=== PATIENT | female | born 1995 | race Caucasian/White ===

== ENCOUNTER 2019-08-10 07:32 | Inpatient (IN) | payer MEDICAID ==
[~2019-08-10] VITALS: Ht 162.6 cm; Wt 108.2 kg
[2019-08-10] VITALS (46 sets, daily range): BP systolic 83–124; BP diastolic 46–76; PULSE 70–106; TEMP 97.7–99.1
[~2019-08-10 07:32] MED LIST: PRENATAL MVI
[2019-08-10 07:44] LABS: BASO % 0.3 % (0.0-2.0); EOS # 0.2 (0.0-0.7); EOS % 1.7 % (0-4.0); GRAN # 9.3 (1.4-6.5); GRAN % 75.4 % (42.2-75.2); LYMPH # 1.9 (1.2-3.4); LYMPH % 15.5 % (20.0-51.0); MEAN CELL VOLUME 76 fl (80.0-100.0); MEAN CORPUSCULAR HGB CONC 31 g/dl (33.0-37.0); MONO # 0.8 (0.1-0.6); MONO % 6.5 % (1.7-9.3); PLATELET COUNT 375 K/mm3 (130-400); RED BLOOD COUNT 4.06 M/mm3 (4.10-5.30)
[2019-08-10 07:45] LABS: HEMOGLOBIN 9.6 g/dl (12.5-16.0); MEAN CORPUSCULAR HEMOGLOBIN 24 pg (27.0-31.0)
[2019-08-10 07:46] LABS: HEMATOCRIT 30.7 % (37.0-47.0)
[2019-08-11 09:00] VITALS: BP 108/66; PULSE 82; TEMP 98
[2019-08-11 13:00] VITALS: BP 116/62; PULSE 78; TEMP 97.8
[2019-08-11 21:00] VITALS: BP 111/65; PULSE 83; TEMP 98.3
[2019-08-11] MEDS ORDERED: MOTRIN 800800 MG/TAB PO (21:09)
[2019-08-12 07:59] VITALS: BP 104/54; PULSE 83; TEMP 97.4
== END 2019-08-12 14:50 | disposition home or self-care (01) | DRG 807 ==
LOC: OB 07:32 → LDR 07:32 → OB 20:15
PROVIDERS: ADMIT Obstetrics & Gynecology
PROC: 10E0XZZ Delivery of Products of Conception, External Approach (ICD-10-PCS; principal; 2019-08-10)
PROC: 3E033VJ Introduction of Other Hormone into Peripheral Vein, Percutaneous Approach (ICD-10-PCS; 2019-08-10)
PROC: 10907ZC Drainage of Amniotic Fluid, Therapeutic from Products of Conception, Via Natural or Artificial Opening (ICD-10-PCS; 2019-08-10)
PROC: 0HQ9XZZ Repair Perineum Skin, External Approach (ICD-10-PCS; 2019-08-10)
DX: O99.214 Obesity complicating childbirth (principal); Z37.0 Single live birth; Z3A.39 39 weeks gestation of pregnancy; O99.334 Smoking (tobacco) complicating childbirth; E66.9 Obesity, unspecified; Z23 Encounter for immunization
CPT/HCPCS: J2590; J7120

== ENCOUNTER 2020-09-30 06:46 | Inpatient (IN) | payer MEDICAID ==
[2020-09-30] VITALS (20 sets, daily range): BP systolic 99–126; BP diastolic 53–80; PULSE 73–96; TEMP 97.8–98.6
[~2020-09-30] VITALS: Ht 162.6 cm; Wt 116.8 kg
[~2020-09-30 06:46] MED LIST changes: +MOTRIN 800800 MG/TAB PO
--- NOTE | 2020-09-30 06:55 | NUR ---
0655- PATIENT AND SIGNIFICANT OTHER WHEELED UP TO THE UNIT. PATIENT UNCOMFORTABLE WITH CONTRACTIONS AND HAVING A HARD TIME BREATHING THROUGH THEM. PATIENT REPORTS GFM, CONTRACTIONS ALL NIGHT ABOUT 10 MINUTES APART, NO LOF AND NO BLEEDING. PATIENT HELPED INTO CLEAN GOWN AND HELPED INTO BED. 0700- EFM AND TOCO ON AND TRACING. SVE BIG BULDGY BAG, UNABLE TO ASSESS ACTUALY DILATION. 0701- CALLED DR. DODGE AND ASKED HER TO COME IN AND EVALUATE INCASE OF DELIVERY, SEE PHYSICIAN RECORD. 0702- IV STARTED AND LR RUNNING. 0705- PEN G STARTED. 0708- DR. DODGE TO BEDSIDE. SVE 8 WITH BIG BULDGY BAG. 0710- CONSENTS SIGNED AND COMPLETED. THIS RN REMAINS AT BEDSIDE.
[2020-09-30 07:22] LABS: BASO % 0.2 % (0.0-2.0); EOS # 0.1 (0.0-0.7); EOS % 0.9 % (0-4.0); GRAN # 10.4 (1.4-6.5); GRAN % 75.1 % (42.2-75.2); HEMOGLOBIN 10.1 g/dl (12.5-16.0); LYMPH # 2.4 (1.2-3.4); LYMPH % 17.6 % (20.0-51.0); MEAN CELL VOLUME 75 fl (80.0-100.0); MEAN CORPUSCULAR HEMOGLOBIN 23 pg (27.0-31.0); MEAN CORPUSCULAR HGB CONC 30 g/dl (33.0-37.0); MEAN PLATELET VOLUME 10.2 fl (7.4-10.4); MONO # 0.8 (0.1-0.6); MONO % 5.4 % (1.7-9.3); PLATELET COUNT 360 K/mm3 (130-400); RED BLOOD COUNT 4.43 M/mm3 (4.10-5.30); REDCELL DISTRIBUTION WIDTH-CV 19.1 % (11.5-14.5)
[2020-09-30 07:25] LABS: HEMATOCRIT 33.3 % (37.0-47.0)
--- NOTE | 2020-09-30 09:00 | NUR ---
09- DR. DODGE BACK ON UNIT. TO BEDSIDE TO AROM AND CHECK SVE. 09- AROM WITH MODERATE AMOUNT OF CLEAR FLUID NOTED. SVE 8/-2. PATIENT THEN ASSISTED TO BRPB AND LL. PATIENT TOLERATED WELL. PATIENT STILL COMFORTABLE WITH EPIDURAL.
--- NOTE | 2020-09-30 09:45 | NUR ---
0945- ANOTHER VARIABLE DECELERATION NOTED WITH CONTRACTION. PATIENT STARTED TO FEEL "SOMETHING DOWN THERE". CHECKED PATIENT AND SHE WAS COMPLETE AND +1. THIS RN REMAINS AT BESIDE WITH PATIENT. 0947- CALLS PROVIDER AND NOTIFIES HER, SEE PHYSICIAN NOTIFICATION RECORD. NURSERY NOFIFIED AND PATIENT AND ROOM PREPPED FOR DELIVERY. 0952- DR. DODGE TO BEDSIDE. LANIER REMOVED AT THIS TIME. 150 CC OUTPUT. 0955 - FIRST PUSH WITH DR. DODGE. 1003- OF VIABLE MALE . PLACED TO MOTHERS ABDOMEN WHERE NURSERY NURSE ASSUMES CARE AT THIS TIME. CORD CLAMPED AND CUT. PERIURETHERAL TEAR NOTICED AND STITCHED TOGETHER. PERINEUM INTACT. 1006- OF PLACENTA. PITOCIN STARTED PER PROTOCOL AT 333ML/HR. FUNDUS MASSAGED TO FIRM BY THIS RN. MODERATE AMOUNT OF BLOOD NOTED. EBL NOTED TO BE 200 BY PROVIDER. 1010- VITALS STABLE, FUNDUS FIRM, PATIENT AND ROOM CLEANED UP AND PUT BACK TOGETHER. NEW PERIPAD AND ICEPACK TO PERINEUM. RECOVERY STARTED.
[2020-09-30] MEDS ORDERED: MOTRIN 800800 MG/TAB PO (11:52)
[2020-10-01 00:25] VITALS: BP 93/47; PULSE 85; TEMP 98.7
[2020-10-01 05:19] VITALS: BP 119/64; PULSE 79; TEMP 97.9
[2020-10-01 09:09] VITALS: BP 114/78; PULSE 82; TEMP 97.8
[2020-10-01 16:07] VITALS: BP 139/84; PULSE 89
[2020-10-01 20:00] VITALS: BP 130/71; PULSE 76; TEMP 98.3
[2020-10-02 07:30] VITALS: BP 122/72; PULSE 71; TEMP 97.7
[2020-10-02 08:00] VITALS: BP 124/82; PULSE 63; TEMP 97.9
[2020-10-02] MEDS ORDERED: PERCOCET 325 MG1 TA2 PO (09:30)
== END 2020-10-02 15:15 | disposition home or self-care (01) | DRG 807 ==
LOC: OB → LDR 06:46 → OB 09:25
PROVIDERS: ADMIT Obstetrics & Gynecology
PROC: 10E0XZZ Delivery of Products of Conception, External Approach (ICD-10-PCS; principal; 2020-09-30)
PROC: 10907ZC Drainage of Amniotic Fluid, Therapeutic from Products of Conception, Via Natural or Artificial Opening (ICD-10-PCS; 2020-09-30)
PROC: 0UQMXZZ Repair Vulva, External Approach (ICD-10-PCS; 2020-09-30)
DX: O99.214 Obesity complicating childbirth (principal); Z37.0 Single live birth; E66.9 Obesity, unspecified; O99.02 Anemia complicating childbirth; D64.9 Anemia, unspecified; O99.824 Streptococcus B carrier state complicating childbirth; O71.82 Other specified trauma to perineum and vulva; Z3A.39 39 weeks gestation of pregnancy
CPT/HCPCS: J2540; J2590; J7120